=== PATIENT | female | born 1960 | race Caucasian/White ===

== ENCOUNTER 2016-10-06 14:00 | Emergency (ER) | payer OTHER ==
[~2016-10-06] VITALS: Ht 162.6 cm; Wt 99.6 kg
[~2016-10-06 14:00] MED LIST: ALL DAY ALLERGY10 MG PO; APRESOLINE10 MG; APRESOLINE10 MG PO; APRESOLINE50 MG PO; ASPIR-LOW81 MG PO; ASPIRIN EC325 MG PO; ASPIRIN81 M2 PO; ATENOLOL100 MG PO; BENADRYL50 MG PO; CARTIA XT180 MG PO; CETIRIZINE HCL10 M2 PO; EPIPEN ADU0.3 MG/0.3 IM; ERGOCALCIF50000 UNIT PO; ESGIC 50-325-41 EAC1 PO; FIORICET WI1 CAPSULE PO; FLONASE16 G1 BOTH NARES; HYDRALAZINE HC100 MG PO; HYDRALAZINE HCL50 MG PO; HYDROCHLOROTHIA25 MG PO; IMITREX25 MG PO; IMITREX50 MG PO; KEFLEX500 MG PO; LISINOPRIL; LISINOPRIL40 MG PO; NAPROXEN250 MG PO; NEXIUM20 MG PO; NORVASC10 MG PO; NORVASC2.5 MG; NORVASC2.5 MG PO; NORVASC5 MG PO; OMEPRAZOLE20 MG PO; OMEPRAZOLE40 M1 PO; PEPCID20 MG PO; POTASSIUM CHLO10 ME4 PO; PRAVACHOL40 MG PO; PRAVASTATIN SOD40 MG PO; PREDNISONE50 MG PO; PRILOSEC40 MG PO; SERTRALINE HCL25 MG PO; SERTRALINE HCL50 MG PO; STOOL SOFTENER100 MG PO; TENORMIN100 MG PO; TOPAMAX100 MG PO; TOPAMAX50 MG PO; TYLENOL EXTRA500 MG PO; TYLENOL REGULA325 MG PO; TYLENOL SINUS1 EA15 PO; ZOFRAN4 MG PO
[2016-10-06 14:24] VITALS: BP 164/97
[2016-10-06] MEDS ORDERED: PRAVASTATIN SOD20 MG PO (16:57)
[2016-10-06] MEDS ORDERED: HYDRALAZINE HC100 MG PO (16:58)
[2016-10-06] MEDS ORDERED: FLONASE16 G1 BOTH NARES (16:59)
[2016-10-06] MEDS ORDERED: VITAMIN D3 PO (17:01)
[2016-10-06] MEDS ORDERED: HYDROCODON-ACE1 EAC7 PO (17:01)
[2016-10-06] MEDS ORDERED: CLARITIN,ALAVAR10 MG PO (17:02)
== END 2016-10-06 18:56 | disposition home or self-care (01) ==
LOC: EME 14:00
DX: M79.604 Pain in right leg (principal); M25.561 Pain in right knee; Z79.82 Long term (current) use of aspirin
CPT/HCPCS: 93971; 99281; 99284; J1100

== ENCOUNTER 2017-05-20 19:46 | Observation (INO) | payer OTHER ==
[~2017-05-20] VITALS: Ht 162.6 cm; Wt 98.5 kg
[~2017-05-20 19:46] MED LIST changes: +CLARITIN,ALAVAR10 MG PO; +HYDROCODON-ACE1 EAC7 PO; +PRAVASTATIN SOD20 MG PO; +VITAMIN D3 PO
[2017-05-20 20:21] LABS: HEMATOCRIT 37.5 % (36.0-46.0); MCH 28.5 PG (29.0-34.0); MCHC 33.6 G/DL (30.0-36.0); MCV 84.8 FL (83-99); MEAN PLAT.VOLUME 9.3 uM^3 (9.5-12.4); PLATELET COUNT 283 K/uL (156-360); RBC DIS.WIDTH-CV 13.3 % (11.8-14.6); RBC DIS.WIDTH-SD 41.3 % (39-53); RED BLOOD COUNT 4.42 M/uL (3.80-5.20)
[2017-05-20 20:36] LABS: CHLORIDE 107 mEq/L (99-109); POTASSIUM 4.1 mEq/L (3.7-5.4); SODIUM 140 mEq/L (136-147)
[2017-05-20 20:38] LABS: GLUCOSE 108 mg/dL (70-99)
[2017-05-20 20:39] LABS: ANION GAP 10 MEQ/L (2-14)
[2017-05-20 20:40] LABS: TOTAL BILIRUBIN 0.4 mg/dL (0.0-1.0)
[2017-05-20 20:41] LABS: ALKALINE PHOSPHATASE 65 IU/L (3-129); GFR ESTIMATE (CALCULATED) > 59 mL/min/
[2017-05-20 20:43] LABS: UREA NITROGEN (BUN) 11 mg/dL (9-23)
[2017-05-20 20:48] LABS: TROP-I INTERPRETATION NEGATIVE; TROPONIN-I < 0.01 ng/mL (0.0-0.30)
[2017-05-20] MEDS ORDERED: PRAVASTATIN SOD40 MG PO (22:25)
[2017-05-20] MEDS ORDERED: AMLODIPINE BESYL5 MG PO (22:25)
[2017-05-20] MEDS ORDERED: VALSARTAN320 MG PO (22:25)
[2017-05-20] MEDS ORDERED: TYLENOL EXTRA500 MG PO (22:31)
[2017-05-20 23:14] LABS: ADD MIUA? YES; BILIRUBIN NEGATIVE; BLOOD SMALL; COLOR YELLOW ((YELLOW)); GLUCOSE (STRIP) NEGATIVE; KETONES NEGATIVE; LEUKOCYTES LARGE; NITRITE NEGATIVE; PROTEIN (STRIP) NEGATIVE; SPECIFIC GRAVITY 1.011 (1.000-1.030); UROBILINOGEN 0.2 MG/DL (0.2-1.0)
[2017-05-20 23:28] LABS: BACTERIA RARE /HPF; EPITHELIAL CELLS 1+ /HPF; MUCUS 1+ /LPF; UCUL ADDED? YES; WHITE BLOOD CELLS 20-30 /HPF (0-5)
[2017-05-21 00:22] VITALS: BP 145/82
[2017-05-21 04:15] VITALS: BP 131/74
[2017-05-21 05:36] LABS: HEMATOCRIT 36.7 % (36.0-46.0); MCH 28.8 PG (29.0-34.0); MCHC 33.8 G/DL (30.0-36.0); MCV 85.3 FL (83-99); MEAN PLAT.VOLUME 9.4 uM^3 (9.5-12.4); PLATELET COUNT 251 K/uL (156-360); RBC DIS.WIDTH-CV 13.6 % (11.8-14.6); RBC DIS.WIDTH-SD 42.3 % (39-53); WHITE BLOOD COUNT 10.5 K/uL (4.1-10.2)
[2017-05-21 06:04] LABS: ALKALINE PHOSPHATASE 59 IU/L (3-129); ANION GAP 9 MEQ/L (2-14); CHLORIDE 105 MEQ/L (99-109); GFR ESTIMATE (CALCULATED) > 59 mL/min/; GLUCOSE 102 mg/dL (70-99); HDL CHOLESTEROL 40 MG/DL (Desirable>=50); LDL CHOLESTEROL 140 mg/dL (Desirable<100); NON-HDL CHOLESTEROL 165 mg/dL (Desirable<160); POTASSIUM 4.3 MEQ/L (3.7-5.4); SAMPLE HEMOLYSIS CHECK 1; SAMPLE ICTERIC CHECK 0; SAMPLE LIPEMIA CHECK 0; SODIUM 139 MEQ/L (136-147); TOTAL BILIRUBIN 0.5 MG/DL (0.0-1.0); TOTAL CHOLESTEROL 205 mg/dL (Desirable<200); TRIGLYCERIDES 124 MG/DL (Normal: <150); UREA NITROGEN (BUN) 12 mg/dL (9-23)
[2017-05-21 07:15] VITALS: BP 134/75
[2017-05-21 11:53] VITALS: BP 134/80
[2017-05-21] MEDS ORDERED: AMOX TR-K CLV1 EAC4 PO (13:31)
[2017-05-21] MEDS ORDERED: ASPIR-LOW81 MG PO (15:12)
[2017-05-22 07:10] LABS: Estimated Average Glucose 103 mg/dL (70-123); HEMOGLOBIN A1c (GLYCOHEMOGLOB) 5.2 % HGB (Below 5.7)
== END 2017-05-21 15:42 | disposition home or self-care (01) ==
LOC: EME → EDBD 19:46 → EME 19:46 → EDOF 22:43 → 5WEST 22:43 → ENRESERV 22:45 → 5WEST 05-21 00:19
PROVIDERS: Emergency Medicine; Internal Medicine; Nurse Practitioner Adult Health
DX: N39.0 Urinary tract infection, site not specified (principal); Z86.73 Personal history of transient ischemic attack (TIA), and cerebral infarction without residual deficits; R42 Dizziness and giddiness; R47.81 Slurred speech; H92.09 Otalgia, unspecified ear; R53.1 Weakness; G43.909 Migraine, unspecified, not intractable, without status migrainosus; I10 Essential (primary) hypertension; F32.9 Major depressive disorder, single episode, unspecified; M10.9 Gout, unspecified; R07.0 Pain in throat; Z90.49 Acquired absence of other specified parts of digestive tract; Z82.49 Family history of ischemic heart disease and other diseases of the circulatory system; Z80.1 Family history of malignant neoplasm of trachea, bronchus and lung; Z80.6 Family history of leukemia; Z80.8 Family history of malignant neoplasm of other organs or systems; Z82.3 Family history of stroke; Z84.1 Family history of disorders of kidney and ureter; Z88.2 Allergy status to sulfonamides; Z88.8 Allergy status to other drugs, medicaments and biological substances; Z91.018 Allergy to other foods
CPT/HCPCS: 70450; 70551; 71020; 80053; 80061; 81003; 83036; 84484; 85027; 87077; 87086; 87186; 87502; 93005; 93880; 99281; 99284; G0378; J1650; J2405; J7030

== ENCOUNTER 2017-05-30 14:00 | Emergency (ER) | payer OTHER ==
[~2017-05-30] VITALS: Ht 162.6 cm; Wt 98.2 kg
[~2017-05-30 14:00] MED LIST changes: +AMLODIPINE BESYL5 MG PO; +AMOX TR-K CLV1 EAC4 PO; +VALSARTAN320 MG PO
[2017-05-30 14:03] VITALS: BP 160/92
== END 2017-05-30 14:43 | disposition home or self-care (01) ==
LOC: EME 14:00
PROC: 3E0234Z Introduction of Serum, Toxoid and Vaccine into Muscle, Percutaneous Approach (ICD-10-PCS; principal; 2017-05-30)
DX: S61.211A Laceration without foreign body of left index finger without damage to nail, initial encounter (principal); W26.0XXA Contact with knife, initial encounter; Y93.G1 Activity, food preparation and clean up; R11.0 Nausea; Z23 Encounter for immunization
CPT/HCPCS: 99281; 99283

== ENCOUNTER 2017-05-30 16:25 | Emergency (ER) | payer OTHER ==
[~2017-05-30] VITALS: Ht 162.6 cm; Wt 98.0 kg
[2017-05-30 17:01] VITALS: BP 156/108
== END 2017-05-30 17:01 | disposition home or self-care (01) ==
LOC: EME 16:25
PROC: 0HQGXZZ Repair Left Hand Skin, External Approach (ICD-10-PCS; principal; 2017-05-30)
DX: S61.211A Laceration without foreign body of left index finger without damage to nail, initial encounter (principal); W26.0XXA Contact with knife, initial encounter; Z79.82 Long term (current) use of aspirin
CPT/HCPCS: 99281; 99283

== ENCOUNTER 2017-06-10 20:35 | Emergency (ER) | payer OTHER ==
[~2017-06-10] VITALS: Ht 162.6 cm; Wt 100.0 kg
[2017-06-10 21:00] LABS: HEMATOCRIT 35.6 % (36.0-46.0); MCH 28.8 PG (29.0-34.0); MCHC 33.7 G/DL (30.0-36.0); MCV 85.4 FL (83-99); MEAN PLAT.VOLUME 9.2 uM^3 (9.5-12.4); RBC DIS.WIDTH-CV 13.9 % (11.8-14.6); RBC DIS.WIDTH-SD 43.2 % (39-53); RED BLOOD COUNT 4.17 M/uL (3.80-5.20); WHITE BLOOD COUNT 10.8 K/uL (4.1-10.2)
[2017-06-10 21:01] LABS: PLATELET COUNT 330 K/uL (156-360)
[2017-06-10 21:08] LABS: CHLORIDE 107 mEq/L (99-109); POTASSIUM 3.8 mEq/L (3.7-5.4); SODIUM 144 mEq/L (136-147)
[2017-06-10 21:10] LABS: GLUCOSE 125 mg/dL (70-99)
[2017-06-10 21:11] LABS: ANION GAP 10 MEQ/L (2-14)
[2017-06-10 21:12] LABS: TOTAL BILIRUBIN 0.3 mg/dL (0.0-1.0)
[2017-06-10 21:13] LABS: ALKALINE PHOSPHATASE 59 IU/L (3-129)
[2017-06-10 21:14] LABS: GFR ESTIMATE (CALCULATED) > 59 mL/min/
[2017-06-10 21:15] LABS: UREA NITROGEN (BUN) 9 mg/dL (9-23)
[2017-06-10] MEDS ORDERED: AMOXICILLIN500 MG PO (21:27)
[2017-06-10 22:10] VITALS: BP 144/81
== END 2017-06-10 22:14 | disposition home or self-care (01) ==
LOC: EME 20:35
DX: I88.9 Nonspecific lymphadenitis, unspecified (principal); R22.0 Localized swelling, mass and lump, head; K21.9 Gastro-esophageal reflux disease without esophagitis; I10 Essential (primary) hypertension; M10.9 Gout, unspecified; F32.9 Major depressive disorder, single episode, unspecified; Z86.73 Personal history of transient ischemic attack (TIA), and cerebral infarction without residual deficits; Z88.2 Allergy status to sulfonamides; Z88.6 Allergy status to analgesic agent; Z88.5 Allergy status to narcotic agent
CPT/HCPCS: 80053; 85027; 99281; 99284

== ENCOUNTER → 2017-06-20 | Outpatient (CLI) | payer OTHER ==
[~2017-06-20] MED LIST changes: +AMOXICILLIN500 MG PO
== END | disposition home or self-care (01) ==
LOC: RAD 15:59
DX: Z02.71 Encounter for disability determination (principal); M17.0 Bilateral primary osteoarthritis of knee
CPT/HCPCS: 73560

== ENCOUNTER 2017-07-13 14:10 | Emergency (ER) | payer OTHER | END 2017-07-13 17:10 | disposition left against medical advice (07) | LOC: EME 14:10 | DX: R22.1 Localized swelling, mass and lump, neck (principal); Z53.21 Procedure and treatment not carried out due to patient leaving prior to being seen by health care provider ==

== ENCOUNTER 2017-07-14 12:02 | Emergency (ER) | payer OTHER ==
[~2017-07-14] VITALS: Ht 162.6 cm; Wt 98.3 kg
[2017-07-14 20:02] VITALS: BP 160/87
== END 2017-07-14 20:04 | disposition home or self-care (01) ==
LOC: EME 12:02
DX: L04.0 Acute lymphadenitis of face, head and neck (principal); K11.8 Other diseases of salivary glands; I10 Essential (primary) hypertension; Z86.73 Personal history of transient ischemic attack (TIA), and cerebral infarction without residual deficits; F32.9 Major depressive disorder, single episode, unspecified; K21.9 Gastro-esophageal reflux disease without esophagitis; Z88.2 Allergy status to sulfonamides
CPT/HCPCS: 99281; 99284